=== PATIENT | male | born 1975 | race Caucasian/White ===

== ENCOUNTER 2017-08-04 13:49 | Inpatient (IN) ==
[2017-08-04 16:08] LABS: Basophils % 0.1 % (0.0-0.8); Eosinophils % 0.1 % (0.00-10.9); Hemoglobin 13.2 GM/DL (14.0-18.0); Immature Granulocytes % 5.9 %; Immature Granulocytes Absolute 0.58 #; Lymphocytes # 0.5 10*3/uL (1.4-4.0); Lymphocytes % 4.8 % (21.2-54.2); Mean Corpuscular HGB Conc 33.8 GM/DL (32-36); Mean Corpuscular Hemoglobin 33 PG (27-34); Mean Corpuscular Volume 97.7 FL (87-102); Mean Platelet Volume 8.6 FL (9.6-12.0); Monocytes # 0.5 10*3/uL (0.11-0.8); Monocytes % 4.9 % (1.7-12.7); Neutrophils # 8.3 10*3/uL (1.4-7.4); Neutrophils % 84.2 % (38.7-73.9); Platelet Count 299 T/CUMM (130-400); Red Blood Count 3.99 MC/CUMM (3.8-5.5); Red Cell Distribution Width 16.2 % (9.3-17.3); White Blood Count 9.9 T/CUMM (4-12)
[2017-08-04 16:33] LABS: Band Neutrophils 2 % (0-10); Lymphocytes 1 % (20-55); Myelocytes 1 %; Platelet Estimate Adequate; Segmented Neutrophils 88 % (50-85); Total Cells Counted 100
[2017-08-04 16:46] LABS: Albumin 3.5 G/DL (3.4-5.0); Bilirubin,Total 1.5 MG/DL (0.2-1.0); Calcium 8.7 MG/DL (8.5-10.1); Osmolality,Calculated 278.5 MOS/KG (273-304); Potassium 4.5 MMOL/L (3.5-5.1); Total Protein 6.5 G/DL (6.4-8.3)
[2017-08-05] MEDS ORDERED: ZALEPLON 5 MG CAPSULE PO PRN (01:56)
[2017-08-05] MEDS ORDERED: POLYETHYLENE GLYCOL POWDER 17 GM PACK PO PRN (01:56)
[2017-08-05] MEDS ORDERED: MORPHINE 2 MG/1 ML SYRINGE IV PRN (01:56)
[2017-08-05] MEDS ORDERED: DEXTROSE 50% 25 GM/50 ML SYRINGE IV PRN (01:56)
[2017-08-05] MEDS ORDERED: ONDANSETRON 4 MG/2 ML VIAL IV PRN (01:56)
[2017-08-05] MEDS ORDERED: GLUCAGON 1 MG VIAL IM PRN (01:56)
[2017-08-05] MEDS: GABAPENTIN 300 MG CAPSULE PO SCH ×4 (02:30→20:30)
[2017-08-05] MEDS: LACTULOSE 20 GM/30 ML UDCUP PO SCH ×6 (02:30→22:54)
[2017-08-05] MEDS: INSULIN LISPRO 100 UNIT/ML SUBCUT SCH ×2 (05:43→13:25)
[2017-08-05] MEDS: CITALOPRAM 20 MG TABLET PO SCH (08:06)
[2017-08-05] MEDS: PANTOPRAZOLE 40 MG TABLET PO SCH (08:06)
[2017-08-05] MEDS: ENOXAPARIN 40 MG/0.4 ML SYRINGE SUBCUT SCH (08:12)
[2017-08-05] MEDS: BACLOFEN 20 MG TABLET PO SCH ×3 (08:12→20:30)
[2017-08-05] MEDS: DEXAMETHASONE 4 MG TABLET PO SCH ×2 (08:12→20:31)
[2017-08-05] MEDS ORDERED: TEMOZOLOMIDE 20 MG PO SCH (20:00)
[2017-08-05] MEDS ORDERED: TEMOZOLOMIDE 140 MG PO SCH (20:00)
[2017-08-05] MEDS: DAPSONE 100 MG TABLET PO SCH (20:31)
[2017-08-06] MEDS: LACTULOSE 20 GM/30 ML UDCUP PO SCH ×4 (02:54→13:57)
[2017-08-06] MEDS: GABAPENTIN 300 MG CAPSULE PO SCH ×4 (02:55→23:39)
[2017-08-06] MEDS: BACLOFEN 20 MG TABLET PO SCH ×3 (08:07→23:42)
[2017-08-06] MEDS: CITALOPRAM 20 MG TABLET PO SCH (08:08)
[2017-08-06] MEDS: DEXAMETHASONE 4 MG TABLET PO SCH ×2 (08:08→23:38)
[2017-08-06] MEDS: PANTOPRAZOLE 40 MG TABLET PO SCH (08:08)
[2017-08-06] MEDS: DOCUSATE SODIUM 100 MG CAPSULE PO SCH ×2 (08:10→23:40)
[2017-08-06] MEDS: ENOXAPARIN 40 MG/0.4 ML SYRINGE SUBCUT SCH (08:10)
[2017-08-06] MEDS ORDERED: LACTULOSE 20 GM/30 ML UDCUP PO PRN (14:32)
[2017-08-06] MEDS: DAPSONE 100 MG TABLET PO SCH (23:42)
[2017-08-07] MEDS: GABAPENTIN 300 MG CAPSULE PO SCH ×4 (03:10→21:02)
[2017-08-07] MEDS: DEXAMETHASONE 4 MG TABLET PO SCH ×2 (08:43→21:02)
[2017-08-07] MEDS: BACLOFEN 20 MG TABLET PO SCH ×3 (08:43→21:02)
[2017-08-07] MEDS: DOCUSATE SODIUM 100 MG CAPSULE PO SCH ×2 (08:43→21:02)
[2017-08-07] MEDS: CITALOPRAM 20 MG TABLET PO SCH (08:43)
[2017-08-07] MEDS: PANTOPRAZOLE 40 MG TABLET PO SCH (08:43)
[2017-08-07] MEDS: ENOXAPARIN 40 MG/0.4 ML SYRINGE SUBCUT SCH (08:44)
[2017-08-08] MEDS: GABAPENTIN 300 MG CAPSULE PO SCH ×4 (01:56→20:30)
[2017-08-08] MEDS: PANTOPRAZOLE 40 MG TABLET PO SCH (08:29)
[2017-08-08] MEDS: BACLOFEN 20 MG TABLET PO SCH ×3 (08:29→20:30)
[2017-08-08] MEDS: CITALOPRAM 20 MG TABLET PO SCH (08:29)
[2017-08-08] MEDS: DOCUSATE SODIUM 100 MG CAPSULE PO SCH ×2 (08:29→20:30)
[2017-08-08] MEDS: DEXAMETHASONE 4 MG TABLET PO SCH ×2 (08:29→20:30)
[2017-08-08] MEDS: ENOXAPARIN 40 MG/0.4 ML SYRINGE SUBCUT SCH (08:30)
[2017-08-09] MEDS: GABAPENTIN 300 MG CAPSULE PO SCH ×4 (02:38→20:52)
[2017-08-09 03:35] LABS: Basophils % 0.2 % (0.0-0.8); Eosinophils # 0.1 10*3/uL (0.0-0.87); Eosinophils % 0.6 % (0.00-10.9); Hematocrit 35.5 VOL% (42.0-52.0); Hemoglobin 11.6 GM/DL (14.0-18.0); Immature Granulocytes % 7.2 %; Immature Granulocytes Absolute 0.87 #; Lymphocytes # 0.7 10*3/uL (1.4-4.0); Lymphocytes % 6.1 % (21.2-54.2); Mean Corpuscular HGB Conc 32.7 GM/DL (32-36); Mean Corpuscular Hemoglobin 33 PG (27-34); Mean Corpuscular Volume 101.1 FL (87-102); Monocytes # 1.1 10*3/uL (0.11-0.8); Monocytes % 8.8 % (1.7-12.7); NRBC # 0.03 10*3/uL; Neutrophils # 9.4 10*3/uL (1.4-7.4); Neutrophils % 77.1 % (38.7-73.9); Platelet Count 313 T/CUMM (130-400); Red Blood Count 3.51 MC/CUMM (3.8-5.5); Red Cell Distribution Width 15.7 % (9.3-17.3); White Blood Count 12.2 T/CUMM (4-12)
[2017-08-09 04:14] LABS: Calcium 8.2 MG/DL (8.5-10.1); Magnesium 2.2 MG/DL (1.8-2.4); Osmolality,Calculated 283.1 MOS/KG (273-304); Potassium 4.6 MMOL/L (3.5-5.1)
[2017-08-09 04:25] LABS: Band Neutrophils 3 % (0-10); Lymphocytes 6 % (20-55); Metamyelocytes 1 %; Myelocytes 3 %; Segmented Neutrophils 83 % (50-85); Total Cells Counted 100
[2017-08-09 04:27] LABS: Anisocytosis 1+; Platelet Estimate Adequate; Tear Drop Cells Few
[2017-08-09] MEDS: BACLOFEN 20 MG TABLET PO SCH ×3 (09:12→20:52)
[2017-08-09] MEDS: CITALOPRAM 20 MG TABLET PO SCH (09:12)
[2017-08-09] MEDS: DOCUSATE SODIUM 100 MG CAPSULE PO SCH ×2 (09:12→20:51)
[2017-08-09] MEDS: PANTOPRAZOLE 40 MG TABLET PO SCH (09:13)
[2017-08-09] MEDS: DEXAMETHASONE 4 MG TABLET PO SCH ×2 (09:13→20:51)
[2017-08-09] MEDS: ENOXAPARIN 40 MG/0.4 ML SYRINGE SUBCUT SCH (09:13)
[2017-08-09] MEDS: DAPSONE 100 MG TABLET PO SCH (20:56)
[2017-08-10] MEDS: GABAPENTIN 300 MG CAPSULE PO SCH ×4 (08:00→20:58)
[2017-08-10] MEDS: CITALOPRAM 20 MG TABLET PO SCH (08:29)
[2017-08-10] MEDS: BACLOFEN 20 MG TABLET PO SCH ×3 (08:29→20:59)
[2017-08-10] MEDS: DOCUSATE SODIUM 100 MG CAPSULE PO SCH ×2 (08:29→20:58)
[2017-08-10] MEDS: ENOXAPARIN 40 MG/0.4 ML SYRINGE SUBCUT SCH (08:29)
[2017-08-10] MEDS: DEXAMETHASONE 4 MG TABLET PO SCH ×2 (08:29→20:58)
[2017-08-10] MEDS: PANTOPRAZOLE 40 MG TABLET PO SCH (08:29)
[2017-08-10] MEDS: DAPSONE 100 MG TABLET PO SCH (20:58)
[2017-08-11] MEDS: GABAPENTIN 300 MG CAPSULE PO SCH ×4 (07:23→22:07)
[2017-08-11] MEDS: DOCUSATE SODIUM 100 MG CAPSULE PO SCH ×2 (09:21→22:07)
[2017-08-11] MEDS: DEXAMETHASONE 4 MG TABLET PO SCH ×2 (09:21→22:07)
[2017-08-11] MEDS: PANTOPRAZOLE 40 MG TABLET PO SCH (09:21)
[2017-08-11] MEDS: ENOXAPARIN 40 MG/0.4 ML SYRINGE SUBCUT SCH (09:22)
[2017-08-11] MEDS: BACLOFEN 20 MG TABLET PO SCH ×3 (09:22→22:07)
[2017-08-11] MEDS: CITALOPRAM 20 MG TABLET PO SCH (09:22)
[2017-08-11] MEDS: DAPSONE 100 MG TABLET PO SCH (22:07)
[2017-08-12] MEDS: GABAPENTIN 300 MG CAPSULE PO SCH ×4 (03:26→21:12)
[2017-08-12] MEDS ORDERED: DEXTROSE 50% 25 GM/50 ML VIAL IV PRN (08:30)
[2017-08-12] MEDS: DEXAMETHASONE 4 MG TABLET PO SCH ×2 (09:07→21:12)
[2017-08-12] MEDS: BACLOFEN 20 MG TABLET PO SCH ×3 (09:07→21:12)
[2017-08-12] MEDS: DOCUSATE SODIUM 100 MG CAPSULE PO SCH ×2 (09:07→21:12)
[2017-08-12] MEDS: PANTOPRAZOLE 40 MG TABLET PO SCH (09:07)
[2017-08-12] MEDS: ENOXAPARIN 40 MG/0.4 ML SYRINGE SUBCUT SCH (09:08)
[2017-08-12] MEDS: CITALOPRAM 20 MG TABLET PO SCH (09:08)
[2017-08-12] MEDS: DAPSONE 100 MG TABLET PO SCH (21:12)
[2017-08-13] MEDS: GABAPENTIN 300 MG CAPSULE PO SCH ×4 (04:09→20:48)
[2017-08-13 06:23] LABS: Basophils # 0.1 10*3/uL (0.0-0.2); Basophils % 0.4 % (0.0-0.8); Eosinophils # 0.1 10*3/uL (0.0-0.87); Hematocrit 34.6 VOL% (42.0-52.0); Hemoglobin 11.5 GM/DL (14.0-18.0); Immature Granulocytes % 8.1 %; Immature Granulocytes Absolute 0.92 #; Lymphocytes # 0.7 10*3/uL (1.4-4.0); Lymphocytes % 5.7 % (21.2-54.2); Mean Corpuscular HGB Conc 33.2 GM/DL (32-36); Mean Corpuscular Hemoglobin 34 PG (27-34); Mean Platelet Volume 9.3 FL (9.6-12.0); Monocytes # 0.8 10*3/uL (0.11-0.8); Monocytes % 7.4 % (1.7-12.7); NRBC # 0.02 10*3/uL; Neutrophils # 8.8 10*3/uL (1.4-7.4); Neutrophils % 77.4 % (38.7-73.9); Platelet Count 300 T/CUMM (130-400); Red Blood Count 3.36 MC/CUMM (3.8-5.5); Red Cell Distribution Width 15.4 % (9.3-17.3); White Blood Count 11.4 T/CUMM (4-12)
[2017-08-13 06:54] LABS: Calcium 8.5 MG/DL (8.5-10.1); Osmolality,Calculated 282.4 MOS/KG (273-304)
[2017-08-13 06:55] LABS: Potassium 4.6 MMOL/L (3.5-5.1)
[2017-08-13 07:09] LABS: Eosinophils 2 % (0-10); Hypochromasia 1+; Lymphocytes 5 % (20-55); Macrocytosis Slight; Myelocytes 1 %; Segmented Neutrophils 81 % (50-85); Total Cells Counted 100
[2017-08-13 07:10] LABS: Platelet Estimate Normal
[2017-08-13] MEDS: ENOXAPARIN 40 MG/0.4 ML SYRINGE SUBCUT SCH (09:15)
[2017-08-13] MEDS: CITALOPRAM 20 MG TABLET PO SCH (09:15)
[2017-08-13] MEDS: DEXAMETHASONE 4 MG TABLET PO SCH ×2 (09:16→20:48)
[2017-08-13] MEDS: BACLOFEN 20 MG TABLET PO SCH ×3 (09:16→20:48)
[2017-08-13] MEDS: DOCUSATE SODIUM 100 MG CAPSULE PO SCH ×2 (09:16→20:48)
[2017-08-13] MEDS: PANTOPRAZOLE 40 MG TABLET PO SCH (09:16)
[2017-08-13] MEDS: DAPSONE 100 MG TABLET PO SCH (20:48)
[2017-08-14] MEDS: GABAPENTIN 300 MG CAPSULE PO SCH ×4 (03:39→21:47)
[2017-08-14] MEDS: DEXAMETHASONE 4 MG TABLET PO SCH ×2 (09:38→21:47)
[2017-08-14] MEDS: PANTOPRAZOLE 40 MG TABLET PO SCH (09:38)
[2017-08-14] MEDS: DOCUSATE SODIUM 100 MG CAPSULE PO SCH ×2 (09:38→21:47)
[2017-08-14] MEDS: BACLOFEN 20 MG TABLET PO SCH ×3 (09:38→21:47)
[2017-08-14] MEDS: CITALOPRAM 20 MG TABLET PO SCH (09:38)
[2017-08-14] MEDS: ENOXAPARIN 40 MG/0.4 ML SYRINGE SUBCUT SCH (09:39)
[2017-08-15] MEDS: GABAPENTIN 300 MG CAPSULE PO SCH ×4 (02:44→20:19)
[2017-08-15 04:42] LABS: Basophils % 0.3 % (0.0-0.8); Eosinophils # 0.1 10*3/uL (0.0-0.87); Eosinophils % 0.6 % (0.00-10.9); Hemoglobin 11.5 GM/DL (14.0-18.0); Immature Granulocytes % 8.3 %; Immature Granulocytes Absolute 0.92 #; Lymphocytes # 0.6 10*3/uL (1.4-4.0); Lymphocytes % 5.2 % (21.2-54.2); Mean Corpuscular HGB Conc 32.9 GM/DL (32-36); Mean Corpuscular Hemoglobin 34 PG (27-34); Mean Corpuscular Volume 104.2 FL (87-102); Mean Platelet Volume 9.1 FL (9.6-12.0); Monocytes # 0.6 10*3/uL (0.11-0.8); Monocytes % 5.8 % (1.7-12.7); NRBC # 0.02 10*3/uL; Neutrophils # 8.8 10*3/uL (1.4-7.4); Neutrophils % 79.8 % (38.7-73.9); Platelet Count 278 T/CUMM (130-400); Red Blood Count 3.36 MC/CUMM (3.8-5.5); Red Cell Distribution Width 15.4 % (9.3-17.3); White Blood Count 11.1 T/CUMM (4-12)
[2017-08-15 05:16] LABS: Bilirubin,Direct 0.29 MG/DL (0.0-0.20); Bilirubin,Indirect 1.5 MG/DL (0.0-1.0); Bilirubin,Total 1.8 MG/DL (0.2-1.0); Calcium 8.9 MG/DL (8.5-10.1); Magnesium 2.3 MG/DL (1.8-2.4); Osmolality,Calculated 284.3 MOS/KG (273-304); Potassium 4.2 MMOL/L (3.5-5.1)
[2017-08-15 05:42] LABS: Band Neutrophils 2 % (0-10); Lymphocytes 9 % (20-55); Macrocytosis Slight; Segmented Neutrophils 85 % (50-85); Total Cells Counted 100
[2017-08-15 05:43] LABS: Platelet Estimate Normal
[2017-08-15] MEDS: DOCUSATE SODIUM 100 MG CAPSULE PO SCH ×2 (10:57→20:19)
[2017-08-15] MEDS: CITALOPRAM 20 MG TABLET PO SCH (10:57)
[2017-08-15] MEDS: ENOXAPARIN 40 MG/0.4 ML SYRINGE SUBCUT SCH (10:57)
[2017-08-15] MEDS: BACLOFEN 20 MG TABLET PO SCH ×3 (10:57→20:19)
[2017-08-15] MEDS: DEXAMETHASONE 4 MG TABLET PO SCH ×2 (10:57→20:19)
[2017-08-15] MEDS: PANTOPRAZOLE 40 MG TABLET PO SCH (11:00)
[2017-08-16] MEDS: GABAPENTIN 300 MG CAPSULE PO SCH ×4 (02:26→20:41)
[2017-08-16 04:58] LABS: Folate 15.2 NG/ML (5.4-24.0)
[2017-08-16] MEDS: BACLOFEN 20 MG TABLET PO SCH ×3 (10:08→20:41)
[2017-08-16] MEDS: DEXAMETHASONE 4 MG TABLET PO SCH ×2 (10:08→20:42)
[2017-08-16] MEDS: PANTOPRAZOLE 40 MG TABLET PO SCH (10:09)
[2017-08-16] MEDS: CITALOPRAM 20 MG TABLET PO SCH (10:09)
[2017-08-16] MEDS: DOCUSATE SODIUM 100 MG CAPSULE PO SCH ×2 (10:09→20:42)
[2017-08-16] MEDS: ENOXAPARIN 40 MG/0.4 ML SYRINGE SUBCUT SCH (10:11)
[2017-08-16] MEDS: DAPSONE 100 MG TABLET PO SCH (20:41)
[2017-08-17] MEDS: GABAPENTIN 300 MG CAPSULE PO SCH ×4 (02:52→21:57)
[2017-08-17] MEDS: ENOXAPARIN 40 MG/0.4 ML SYRINGE SUBCUT SCH (09:59)
[2017-08-17] MEDS: DOCUSATE SODIUM 100 MG CAPSULE PO SCH ×2 (10:00→21:05)
[2017-08-17] MEDS: BACLOFEN 20 MG TABLET PO SCH ×3 (10:00→21:05)
[2017-08-17] MEDS: CITALOPRAM 20 MG TABLET PO SCH (10:00)
[2017-08-17] MEDS: DEXAMETHASONE 4 MG TABLET PO SCH ×2 (10:00→21:05)
[2017-08-17] MEDS: PANTOPRAZOLE 40 MG TABLET PO SCH (10:01)
[2017-08-17] MEDS: DAPSONE 100 MG TABLET PO SCH (21:05)
[2017-08-18] MEDS: GABAPENTIN 300 MG CAPSULE PO SCH ×4 (02:57→21:18)
[2017-08-18 06:56] LABS: Basophils % 0.3 % (0.0-0.8); Eosinophils % 0.3 % (0.00-10.9); Hematocrit 35.8 VOL% (42.0-52.0); Immature Granulocytes % 6.6 %; Immature Granulocytes Absolute 0.74 #; Lymphocytes # 0.7 10*3/uL (1.4-4.0); Lymphocytes % 6.3 % (21.2-54.2); Mean Corpuscular HGB Conc 33.5 GM/DL (32-36); Mean Corpuscular Hemoglobin 35 PG (27-34); Mean Corpuscular Volume 105.3 FL (87-102); Mean Platelet Volume 9.3 FL (9.6-12.0); Monocytes # 0.7 10*3/uL (0.11-0.8); Monocytes % 6.5 % (1.7-12.7); Neutrophils # 8.9 10*3/uL (1.4-7.4); Platelet Count 279 T/CUMM (130-400); White Blood Count 11.2 T/CUMM (4-12)
[2017-08-18 07:23] LABS: Band Neutrophils 2 % (0-10); Hypochromasia 1+; Lymphocytes 6 % (20-55); Macrocytosis Slight; Platelet Estimate Normal; Segmented Neutrophils 88 % (50-85); Total Cells Counted 100
[2017-08-18 07:36] LABS: Albumin 3.3 G/DL (3.4-5.0); Bilirubin,Direct 0.25 MG/DL (0.0-0.20); Bilirubin,Indirect 1.4 MG/DL (0.0-1.0); Bilirubin,Total 1.6 MG/DL (0.2-1.0); Magnesium 2.5 MG/DL (1.8-2.4); Osmolality,Calculated 282.3 MOS/KG (273-304); Potassium 4.2 MMOL/L (3.5-5.1); Total Protein 6.2 G/DL (6.4-8.3)
[2017-08-18] MEDS: DEXAMETHASONE 4 MG TABLET PO SCH ×2 (10:09→21:18)
[2017-08-18] MEDS: DOCUSATE SODIUM 100 MG CAPSULE PO SCH ×2 (10:09→21:18)
[2017-08-18] MEDS: CITALOPRAM 20 MG TABLET PO SCH (10:09)
[2017-08-18] MEDS: BACLOFEN 20 MG TABLET PO SCH ×3 (10:09→21:17)
[2017-08-18] MEDS: PANTOPRAZOLE 40 MG TABLET PO SCH (10:10)
[2017-08-18] MEDS: ENOXAPARIN 40 MG/0.4 ML SYRINGE SUBCUT SCH (10:10)
[2017-08-18] MEDS: DAPSONE 100 MG TABLET PO SCH (21:18)
[2017-08-19] MEDS: GABAPENTIN 300 MG CAPSULE PO SCH ×3 (02:15→14:55)
[2017-08-19] MEDS: CITALOPRAM 20 MG TABLET PO SCH (08:42)
[2017-08-19] MEDS: BACLOFEN 20 MG TABLET PO SCH ×3 (08:42→21:11)
[2017-08-19] MEDS: DOCUSATE SODIUM 100 MG CAPSULE PO SCH ×2 (08:42→21:11)
[2017-08-19] MEDS: DEXAMETHASONE 4 MG TABLET PO SCH ×2 (08:42→21:11)
[2017-08-19] MEDS: PANTOPRAZOLE 40 MG TABLET PO SCH (08:43)
[2017-08-19] MEDS: ENOXAPARIN 40 MG/0.4 ML SYRINGE SUBCUT SCH (08:43)
[2017-08-19] MEDS: GABAPENTIN 600 MG TABLET PO SCH ×2 (17:09→21:11)
[2017-08-19] MEDS: DAPSONE 100 MG TABLET PO SCH (21:12)
[2017-08-20 03:36] LABS: Basophils % 0.2 % (0.0-0.8); Eosinophils # 0.1 10*3/uL (0.0-0.87); Eosinophils % 1.1 % (0.00-10.9); Hematocrit 34.6 VOL% (42.0-52.0); Hemoglobin 11.8 GM/DL (14.0-18.0); Immature Granulocytes % 6.4 %; Immature Granulocytes Absolute 0.65 #; Lymphocytes # 0.7 10*3/uL (1.4-4.0); Lymphocytes % 7.2 % (21.2-54.2); Mean Corpuscular HGB Conc 34.1 GM/DL (32-36); Mean Corpuscular Hemoglobin 37 PG (27-34); Mean Corpuscular Volume 108.1 FL (87-102); Mean Platelet Volume 9.2 FL (9.6-12.0); Monocytes # 0.9 10*3/uL (0.11-0.8); Monocytes % 8.4 % (1.7-12.7); Neutrophils # 7.7 10*3/uL (1.4-7.4); Neutrophils % 76.7 % (38.7-73.9); Platelet Count 289 T/CUMM (130-400); Red Cell Distribution Width 14.8 % (9.3-17.3); White Blood Count 10.1 T/CUMM (4-12)
[2017-08-20 04:03] LABS: Calcium 8.5 MG/DL (8.5-10.1)
[2017-08-20 04:04] LABS: Osmolality,Calculated 285.3 MOS/KG (273-304); Potassium 4.8 MMOL/L (3.5-5.1)
[2017-08-20 05:15] LABS: Band Neutrophils 2 % (0-10); Eosinophils 2 % (0-10); Lymphocytes 9 % (20-55); Myelocytes 1 %; Segmented Neutrophils 80 % (50-85); Total Cells Counted 100
[2017-08-20 05:16] LABS: Giant Platelets Few; Hypochromasia 1+; Macrocytosis Slight; Platelet Estimate Adequate
[2017-08-20] MEDS: CITALOPRAM 20 MG TABLET PO SCH (09:13)
[2017-08-20] MEDS: ENOXAPARIN 40 MG/0.4 ML SYRINGE SUBCUT SCH (09:13)
[2017-08-20] MEDS: GABAPENTIN 600 MG TABLET PO SCH ×3 (09:13→21:40)
[2017-08-20] MEDS: DOCUSATE SODIUM 100 MG CAPSULE PO SCH ×2 (09:13→21:40)
[2017-08-20] MEDS: DEXAMETHASONE 4 MG TABLET PO SCH ×2 (09:14→21:40)
[2017-08-20] MEDS: PANTOPRAZOLE 40 MG TABLET PO SCH (09:14)
[2017-08-20] MEDS: BACLOFEN 20 MG TABLET PO SCH ×3 (09:14→21:40)
[2017-08-20] MEDS: DAPSONE 100 MG TABLET PO SCH (21:41)
[2017-08-21] MEDS: DOCUSATE SODIUM 100 MG CAPSULE PO SCH (10:21)
[2017-08-21] MEDS: GABAPENTIN 600 MG TABLET PO SCH ×2 (10:21→17:06)
[2017-08-21] MEDS: DEXAMETHASONE 4 MG TABLET PO SCH (10:21)
[2017-08-21] MEDS: PANTOPRAZOLE 40 MG TABLET PO SCH (10:21)
[2017-08-21] MEDS: BACLOFEN 20 MG TABLET PO SCH ×2 (10:22→17:06)
[2017-08-21] MEDS: CITALOPRAM 20 MG TABLET PO SCH (10:22)
[2017-08-21] MEDS: ENOXAPARIN 40 MG/0.4 ML SYRINGE SUBCUT SCH (10:22)
[2017-08-21] MEDS ORDERED: ZINC OXIDE PASTE 113 GM TUBE TOP SCH (10:30)
[2017-08-21 12:12] VITALS: BP 115/64
== END 2017-08-21 19:25 | disposition hospice, home (50) | DRG 543 ==
LOC: N.ED 13:49 → N.EDINP 08-05 01:04 → SUATTDRO 08-05 01:04 → N.2E 08-05 01:39
PROVIDERS: ADMIT Internal Medicine; ATTEND Internal Medicine